=== PATIENT | female | born 2000 | race Caucasian/White ===

== ENCOUNTER → 2024-06-30 16:23 | Outpatient (REF) | payer BC, SELFPAY ==
[2024-07-05 08:54] LABS: HPV, High Risk Detected; HPV, High Risk Source Cervical
== END ==
LOC: CPAP 16:23
DX: Z12.4 Encounter for screening for malignant neoplasm of cervix (principal)
CPT/HCPCS: 87624

== ENCOUNTER → 2024-11-28 10:13 | Outpatient (REF) | payer BC, SELFPAY ==
[2024-11-28 11:06] LABS: % Basophils 0.8 % (0-2); % Eosinophils 3.2 % (0-6); % Immature Granulocytes 0.3 % (0-0.5); % Lymphocytes 32.1 % (20.5-51.1); % Neutrophils 56.6 % (42.2-75.2); Absolute Eosinophils 0.1 10^3/uL (0-0.7); Absolute Lymphocytes 1.2 10^3/uL (1.2-3.4); Absolute Monocytes 0.3 10^3/uL (0.1-0.6); Absolute Neutrophils 2.1 10^3/uL (1.4-6.5); Hematocrit 37.9 % (37.0-47.0); Hemoglobin 12.8 g/dL (12.0-16.0); Mean Corp Hgb Conc. 33.8 g/dL (33.0-37.0); Mean Platelet Volume 11.6 fL (7.4-10.4); Nucleated Red Blood Cells % 0 %; Platelet Count 211 10^3/uL (130-400); Red Blood Cell Count 4.26 10^6/uL (4.20-5.40); Red Cell Dist. Width 12.4 % (11.5-14.5); White Blood Cell Count 3.7 10^3/uL (4.8-10.8)
[2024-11-28 11:40] LABS: Erythrocyte Sed Rate 8 mm/hour (0-20)
[2024-11-28 12:28] LABS: ALT (SGPT) 12 U/L (0-35); AST (SGOT) 25 U/L (14-36); Alkaline Phosphatase 54 U/L (38-126); Blood Urea Nitrogen 13 mg/dl (7-17); Carbon Dioxide 26 mmol/L (22-30); Chloride 108 mmol/L (98-107); Glucose 84 mg/dl (70-99); HDL Cholesterol 71 mg/dl; LDL Cholesterol, Calculated 70 mg/dl; Potassium 4.5 mmol/L (3.5-5.1); Sodium 141 mmol/L (135-145); Total Bilirubin 0.6 mg/dl (0.2-1.3); Total Cholesterol 150 mg/dl (50-199); Total Protein 7.7 g/dl (6.3-8.2); Triglyceride 46 mg/dl (10-149); Very Low Density Lipoprotein 9 mg/dl (0-30); eGFR > 60.00
[2024-11-28 12:38] LABS: Glycohemoglobin (HgbA1c) 4.9 % (4.0-5.6)
[2024-11-28 13:57] LABS: C-Reactive Protein < 5.00 mg/L (0.0-10.00)
[2024-11-28 14:27] LABS: TSH Reflex To Free T4 1.77 uIU/ml (0.47-4.68)
[2024-11-28 17:50] LABS: Syphilis/T. pallidum Ab Reflex Negative (Negative)
[2024-11-28 21:02] LABS: HIV Combo Negative (Negative)
[2024-11-28 21:10] LABS: Hepatitis C Antibody Negative (Negative)
== END ==
LOC: REG 10:13
DX: Z11.3 Encounter for screening for infections with a predominantly sexual mode of transmission (principal); Z68.30 Body mass index [BMI] 30.0-30.9, adult; L81.6 Other disorders of diminished melanin formation
CPT/HCPCS: 36415; 80053; 80061; 83036; 84443; 85025; 85652; 86038; 86140; 86780; 86803; 87389; 87491; 87591

== ENCOUNTER 2025-02-04 00:23 | Observation (INO) | payer BC, SELFPAY ==
[2025-02-03 18:44] VITALS: BP 112/69
[2025-02-03 19:21] VITALS: BP 112/60
[2025-02-03 20:00] VITALS: BP 97/67
[2025-02-03 20:56] VITALS: BP 116/61
[2025-02-03 21:02] LABS: Hematocrit 35.1 % (37.0-47.0); Hemoglobin 12.3 g/dL (12.0-16.0); Mean Corp Hgb Conc. 35.0 g/dL (33.0-37.0); Mean Corpuscular Volume 85.6 fL (81.0-99.0); Nucleated Red Blood Cells % 0 %; Platelet Count 190 10^3/uL (130-400); Red Cell Dist. Width 12.3 % (11.5-14.5)
[2025-02-03 21:15] LABS: HCG, Serum Qualitative Screen Negative
[2025-02-03 21:22] LABS: ALT (SGPT) 11 U/L (0-35); AST (SGOT) 22 U/L (14-36); Albumin 4.8 g/dl (3.5-5.0); Alkaline Phosphatase 54 U/L (38-126); Blood Urea Nitrogen 10 mg/dl (7-17); Calcium 9.7 mg/dl (8.4-10.2); Carbon Dioxide 24 mmol/L (22-30); Chloride 102 mmol/L (98-107); Glucose 93 mg/dl (70-99); Potassium 4.2 mmol/L (3.5-5.1); Sodium 134 mmol/L (135-145); Total Protein 7.1 g/dl (6.3-8.2); eGFR > 60.00
--- NOTE | 2025-02-03 21:29 | ED.GENMED ---
History of Present Illness
General
Chief Complaint: Dizziness
Source: patient and family
Exam Limitations: none
Time Seen by Provider: 02/03/25 20:49
Nursing documentation reviewed up to this point in time: agreed with
History of Present Illness
History of Present Illness:
The patient is a 24-year-old female who reports that she was sitting and writing notes at 11 AM today and suddenly noted she difficulty writing words properly. Additionally, at the time, she noted she had difficulty verbalizing what she wanted to
say. Patient reports that the words would not come out properly and she experienced mumbling and also said words that did not make sense. Patient reports that symptoms lasted for hours and are now nearly gone at this time. Patient reports that
she also noticed generalized numbness around the center of her nose and mouth. Shortly after her symptoms started, she also developed a fairly sudden onset of a headache on the left side of her head. Patient reports that she still has the
headache. Patient reports that she generally does not get headaches and she has never had neurological symptoms like this before. Patient reports that her speech is back to its baseline but she still slightly feels as if it is harder to get words
out. She denies weakness. She denies vision changes. She denies nausea and vomiting. Patient reports that her sister has a history of Chiari malformation and underwent neurosurgery about a year and a half ago.
Past History
Past History
ED Past Medical History: None and Psychiatric
ED Past Surgical History: Tonsilectomy
Social History
Tobacco: Non-smoker
Alcohol: Occasional
Drug: None
Personal: Single
Living: with family
Employment: Employed
Family History
Family History: Other (Sister has Chiari malformation)
Review of Systems
Review of Systems
Allergies reviewed?: Yes
All Other Systems: ROS reviewed and negative except as documented in HPI and ROS
Constitutional: Reports no symptoms
EENT: Reports no symptoms
Respiratory: Reports no symptoms
Cardiac: Reports no symptoms
ABD/GI: Reports no symptoms
: Reports no symptoms
Musculoskeletal: Reports no symptoms
Skin: Reports no symptoms
Neurological: Reports dizzy, headache, numbness and other
Endocrine: Reports no symptoms
Hematologic/Lymphatic: Reports no symptoms
Psychiatric: Reports no symptoms
Phy Exam
Physical Exam
Physical Exam:
Physical Exam
General: no apparent distress, not acutely ill
Neck: supple. no meningeal signs. normal psoterior pharynx
Heart: s1/s2 regular rate and rhythm, no murmur. equal radial pulses.
Lungs: no acute respiratory distress. clear bilaterally
Abdomen: normal bowel sounds. not tender. no CVAT
Neuro: alert and orientedx3. no focal neurological deficits, visual jay intact. Equal sensation bilaterally in face, arms and legs. Speech sounds normal. Able to answer all questions appropriately. PERRL,
extraocular muscles intact
Skin: no rash
Psychiatric: well kept. interactive and cooperative
Extremities: no edema. no calf tenderness. negative homans. good distal pulses
Scores
NIH Stroke Score
Level of Consciousness: 0 - Alert
LOC Questions: 0-Answers both correctly
LOC Commands: 0-Performs both correctly
Best Horizontal Gaze: 0-Normal
Visual Jay: 0=Normal, no visual loss
Facial Palsy: 0=Normal, symmetrical
Motor - Right Arm: 0=No drift 10 seconds
Motor - Left Arm: 0=No drift 10 seconds
Motor - Right Le-No drift 5 seconds
Motor - Left Le-No drift 5 seconds
Limb Ataxia: 0-Absent
Sensation: 0-Normal
Best Language: 0-No aphasia
Dysarthria: 0-Normal
Extinction and Inattention: 0-No abnormality
NIH Total Score:: 0
Course
Orders/Labs/Results
Orders:
Orders
02/03/25 20:50
Test Result ONCE
02/03/25 20:51
Electrocardiogram (*1) Urgent
Reason for Study: TIA/Stroke
EKG- Treatment ONCE
02/03/25 20:54
Complete Blood Count/With Diff Urgent
Comprehensive Metabolic Panel Urgent
HCG, Serum Qualitative Screen Urgent
02/03/25 21:27
CT Head & Neck Angio W/wo IV Urgent
Comment:
Reason For Exam: headache, difficulty finding words
02/03/25 21:31
Morphine Sulfate 4 mg IV NOW STA
02/03/25 21:32
Ondansetron Injectable [Zofran] 4 mg IV NOW STA
02/03/25 22:59
Ketorolac [Toradol] 30 mg IV NOW STA
Abnormal Lab Results
02/03/25
20:54
RBC 4.10 L 10^6/uL
(4.20-5.40)
Hct 35.1 L %
(37.0-47.0)
MPV 11.5 H fL
(7.4-10.4)
Absolute Neuts (auto) 6.9 H 10^3/uL
(1.4-6.5)
Absolute Lymphs (auto) 1.0 L 10^3/uL
(1.2-3.4)
Neutrophils % 80.7 H %
(42.2-75.2)
Lymphocytes % 11.6 L %
(20.5-51.1)
Sodium 134 L mmol/L
(135-145)
02/03/25 20:54
02/03/25 20:54
Vital Signs
Initial and Last Documented VS:
Initial Vital Signs
Temp Pulse Resp BP Pulse Ox
98.2 F 61 16 112/69 98
02/03/25 18:44 02/03/25 18:44 02/03/25 18:44 02/03/25 18:44 02/03/25 18:44
Last Documented Vital Signs
Temp Pulse Resp BP Pulse Ox
98.2 F 69 19 116/61 100
02/03/25 18:44 02/03/25 21:01 02/03/25 20:30 02/03/25 20:56 02/03/25 22:08
MDM/Problems Addressed
Differential Diagnosis Includes:
Acute CVA, atypical migraine, subarachnoid hemorrhage
MDM/Problems Addressed:
Patient presents with acute headache and difficulty writing and speaking
*Radiology
Radiology exam reviewed: radiology read reviewed
*Pulse Oximetry
SaO2: 98
Oxygen Mode of Delivery: Room air
Patient hypoxic: no
*EKG
Interpreted by ED Provider?: Yes
Interpretation: normal
Comparison EKG: no comparison EKG present
Rate: normal
Rhythm: sinus
[place]: normal axis
Interval: normal interval
QRS Pattern: normal QRS
Ischemia: no ischemia
*Systems Architect Interpretation
Rate: normal
Interpretation: normal
Rhythm: sinus
*Critical Care Note
Total Time (30-74mins, 75-104mins- exclusive of procedures): 35 minutes
comment:
35 minutes of critical care between reviewing CT report, speaking to [facility] neurolog[facility], reviewing patient's blood work, EKG and counseling patient and family
ED Attending Note
-
Portions of this chart may have been created with voice recognition software.� Occasional wrong word or��sound alike� substitutions may have occurred due to the inherent limitations of voice recognition software.
Discharge Plan
Departure
Patient Disposition: Admit
Date of Disposition: 02/03/25
Time of Disposition: 23:20
Admit to: Med/Surg and Telemetry
Presentation/result/management discussed w/ accepting MD/DO: Hospitalist
Patient with high blood pressure during this ER visit?: No
Condition: Good
Covid-19: Not Applicable
Discharge Problem:
Stroke-like symptom
Prescriptions:
No Action
trazodone 100 MG tablet
100 mg PO HS
escitalopram oxalate 10 MG tablet
10 mg PO HS
Biotin
1 tab PO HS
amoxicillin-pot clavulanate 1 TABLET tablet
1 tab PO Q12H 7 Days Qty: 14 0RF
Referrals:
Celestino Escudero DO, Resident [Family Provider, General]
Interventions
Interventions:
*Risk Screen - Suicide Last Done: 02/03/25 18:44
*General Assessment Last Done: 02/03/25 18:44
*Neglect/Abuse Screening Last Done: 02/03/25 20:01
*ED- Fall Risk Assessment Last Done: 02/03/25 20:01
*ED COVID-19 Vaccine History Last Done: 02/03/25 20:01
ED- Neurological Assessment Last Done: 02/03/25 22:08
ED Swallowing Screen Last Done: 02/03/25 22:08
Discharge Date and Time
Print Language: UKRAINIAN
[2025-02-03] MEDS: ZOFRAN 4 MG IV (22:02)
[2025-02-03] MEDS: MORPHINE SULFATE 4 MG IV (22:02)
[2025-02-03 23:00] VITALS: BP 116/54
[2025-02-03] MEDS: TORADOL 30 MG IV (23:10)
--- NOTE | 2025-02-03 23:43 | HPS.HSE ---
Family Physician
-
Family Physician: Celestino Escudero DO, Resident
Chief Complaint
-
Dizziness
History of Present Illness
This is a 24-year-old female with no known signal past medical history presenting to the emergency department with acute episode of word finding difficulty and right difficulty starting at around 11 AM today.
Patient reports that around 11 AM while at work she suddenly had difficulty writing and then speaking. She felt that she might have been dreaming but the symptoms were recognized by coworkers. She had mumbled words and was not making sense. She
also reported left-sided headache without any radiation to the neck. She also reports some generalized numbness around the center of her nose and mouth. She slept for a few hours and then when she woke up the symptoms came back again.
She denied any recent cough cold flulike symptoms. She denies having any nausea or vomiting. She denies any vision changes. She denies any sinus congestion. She denies feeling lightheaded. He does report some dizziness. Neck pain or neck
stiffness. She denies any back pain. She denies any urinary symptoms. She denies having any fevers or chills. She has no recent travels or sick contacts. Patient does not take any medications. Denies tobacco smoking and use of oral
contraceptives. And no recent vaccinations. Denies any trauma due to the recurrence of her symptoms she decided to come to the emergency department.
Patient reports no significant family history of migraines, seizures, strokes. She does report a sister with a history of Chiari malformation status post surgery.
In the Emergency Department she was afebrile, blood pressure was 116/61 with a pulse rate of 69 she was satting 100% on room air.
CBC was unremarkable, electrolytes BUN/creatinine were all normal. ECG showed a normal sinus rhythm
CT of the head without contrast without acute intracranial abnormality.
No findings to suggest internal carotid artery dissection bilaterally and no demonstrable atherosclerotic narrowing of the internal carotid arteries.
Markedly dominant left vertebral artery.
No findings to suggest proximal intracranial arterial occlusion bilaterally. Please see above comments.
Medical History
Past Medical History
Past Medical History: Reports Psychiatric (depression/anxiety)
Past Surgical History: Reports Tonsilectomy
Social History
Tobacco: Vaping
Alcohol: None
Drug: None
Personal: Single
Employment: Employed
Family History
Family History: Not pertinent
Allergies / Home Medications
Allergies reflects when Allergies were last updated in [employer].
Home Medications with original date entered in [employer]
Allergy/Medication List:
Allergies
Allergy/AdvReac Type Severity Reaction Status Date / Time
No Known Allergies Allergy Verified 02/03/25 18:48
Home Medications
Biotin 1 tab PO HS 02/15/20
amoxicillin 875 mg-potassium clavulanate 125 mg tablet 1 tab PO Q12H 7 days #14 tabs 02/15/20
escitalopram oxalate 10 mg tablet 10 mg PO HS 02/15/20
trazodone 100 mg tablet 100 mg PO HS 02/15/20
Review of Systems
-
Constitutional: Reports No Symptoms
EENT: Reports No Symptoms
Respiratory: Reports No Symptoms
Cardiac: Reports No Symptoms
Abdomen/GI: Reports No Symptoms
: Reports No Symptoms
Musculoskeletal: Reports No Symptoms
Skin: Reports No Symptoms
Neurological: Reports See HPI, Dizzy and Numbness
Endocrine: Reports No Symptoms
Hematologic/Lymphatic: Reports No Symptoms
Psych: Reports No Symptoms
Physical Exam
Vital Signs
Vital Signs
Temp Pulse Resp BP Pulse Ox
98.2 F 69 19 116/61 100
02/03/25 18:44 02/03/25 21:01 02/03/25 20:30 02/03/25 20:56 02/03/25 22:08
Physical Exam
General: Well Developed, Well Nourished and No Apparent Distress
HEENT: NormoCephalic, Moist mucous membranes and Atraumatic
Respiratory: Clear
Cardiac: S1/S2 and Regular Rhythm; No Murmur or Rub
GI: Soft, Non Tender, Non Distended and Normal Bowel Sounds; No Organomegaly
Rectal: Deferred by Provider
Musculoskeletal: No Clubbing, No Cyanosis and No Edema
Skin: No Rash
Neuro: Nonfocal/grossly intact
Psych: Calm
Laboratory Results
-
02/03/25 20:54
02/03/25 20:54
Laboratory Results
Total Bilirubin 0.8 mg/dl (0.2-1.3) 02/03/25 20:54
AST 22 U/L (14-36) 02/03/25 20:54
ALT 11 U/L (0-35) 02/03/25 20:54
Alkaline Phosphatase 54 U/L (38-126) 02/03/25 20:54
Data Reviewed
-
CT Scan: Report Reviewed by me
Medical Tests (Nuc Med, Echo, EKG etc): Image Personally Visualized and interpreted
Lab Data: Labs Reviewed by me
Old Records: Reviewed
Impression/Plan
-
IMPRESSION:
24 year-old with no known segment past medical history presenting to the emergency department with an acute episode of word finding difficulty, writing difficulties and mild perioral numbness with associated left-sided headache. No prior history of
migraines or seizures. CT head and CT angio unremarkable. Labs are otherwise unremarkable. Symptoms are now mostly resolved although patient still feels off from her baseline. Due to the acuity of the onset, lack of history of headaches and
associated neurological changes there remains some concern for atypical migraine versus dural sinus thrombosis.
PLAN:
Headache
-Admit to MedSurg
-Neurochecks every 8 hours
-Discussed with [facility] neuro resident, CT venogram recommended and admission.
-Pain control and antiemetics
-Neurology consult
DVT �SCDs
CODE STATUS�full
[2025-02-04 00:54] VITALS: BMI 30.3
--- NOTE | 2025-02-04 02:39 | DOWNTIME ---
There was a [employer] Downtime on 02/04/2025 from 0100 to 02/04/2025 at 0235. Downtime documentation of patient's care, including medication administrations, has been reconciled in the electronic record per guidelines. Refer to the
patient's paper chart under the miscellaneous tab to see printed paper medication records and downtime forms.
--- NOTE | 2025-02-04 08:13 | CON.NEURO4 ---
Addendum entered and electronically signed by Angelo Peters MD 02/04/25 11:24:
Studies reviewed.
I have personally examined the patient. I reviewed and agree with the SENIOR ELECTRICAL DESIGN ENGINEER's Note.
My addenda:
Awake, alert, interactive. No acute distress.
Speech intact.
Follows 2-step requests w/o difficulty. No tremor.
Extra-ocular movements grossly intact.
Facial movements full and symmetric. Hearing intact to normal conversational volume.
Normal UE movements bilaterally.
Neck: full ROM.
Chest: no dyspnea
Heart: no JVD
Ext: (-) Clubbing, (-) Cyanosis, (-) Edema
IMPRESSIONS/RECOMMENDATIONS:
Abrupt onset of skin sensation change followed by headache. Most likely due to migraine with aura. Differential diagnosis includes intracranial structural abnormality producing symptoms although this is less likely based on plain head CT appearing
to be unremarkable.
Check MRI brain with and without contrast
Check blood work for metabolic abnormalities producing symptoms
No indication for antiplatelet agents at this time
Would provide rizatriptan in hopes of remediating the patient's headache
Not clear patient will require routine antiheadache medication at this time
D/W patient
All questions answered.
Will continue to follow pending results.
Original Note:
Documented by User: Jayshree Watson NP 02/04/25 10:20
Consultation - Neurology 4
-
CONSULTING PHYSICIAN: Angelo Peters MD
REFERRING PHYSICIAN: Hospitalists/Dr. Ortiz
DICTATED BY: AIXA Cohen
DATE/TIME OF REQUEST: 02/04/25
DATE/TIME OF CONSULTATION: 02/04/25
Reason for Consultation: Aphasia, headache, sensation changes
History of Present Illness:
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
writing, her written words started looking nonsensical. She reports that her mom also said her speech was somewhat nonsensical and slurred. She then developed a tingling sensation on her nose, felt slightly dizzy, and became nauseous. About 30
minutes later she developed a headache in the left temporal-parietal region. She rates her headache yesterday a 7-8/10. Shes notes having significant photo/phonophobia. She took 3 ibuprofen and laid down for a nap. Upon waking her symptoms were
persistent so she took an Excedrin migraine. After still having no relief of her headache, she presented to the ER for evaluation. CT head and CTA head/neck were obtained on arrival in the ER and are negative for any acute abnormalities. NIHSS was
0 and she was not a candidate for TNK/IAT. She reports having some relief of her headache down to a 3/10 by 2300 after receiving medication in the ER. Today (02/04/25), she notes that her headache is still a 3/10 on the left side of her head. She
denies any dizziness, vision changes, speech/swallowing difficulty, numbness, and weakness. She denies any personal history of migraine headaches or events like this in the past. About once every couple of months she has a mild 2-3/10 dull headache
not associated with photo/phonophobia or nausea/vomiting. She typically takes ibuprofen and her headache resolves in 30 minutes. She is not taking hormonal control. Her sister gets migraines and had surgical intervention on a Chiari 1
malformation.
Past Medical History: Anxiety, depression.
Surgical History: Tonsillectomy.
Family History: Sister- migraines, Chiari malformation.
Social History: Occasionally vapes. Denies alcohol and illicit drug use. Works at a [employer] alf.
Allergies: No known allergies.
Home Medications: None.
Review of Symptoms:
Patient denies any fever, chest pain, shortness of breath, GI or symptoms.
�Per the HPI.�All systems are reviewed negative except above.
Physical Exam:
The patient is afebrile, abdomen is nondistended, breathing is unlabored, skin is warm and dry, no edema.
NIH Stroke Scale:
I performed the NIH stroke scale on the patient on 02/04/25 at 0900. The patient scored 0 points on the NIH stroke scale assessment, which were assigned as follows: See below.
Neurologic Examination:
The patient is awake, alert and oriented x 3. She is able to follow commands and answer questions appropriately. There is no aphasia or dysarthria. On cranial nerve assessment, pupils are 3 mm bilateral, round and reactive to light and
accommodation. Visual delvalle are full. Extraocular movements are intact. Facial sensations are intact and bilaterally symmetrical, there is no facial asymmetry. Hearing is intact bilaterally to normal conversation volume. Tongue palate and uvula are
midline. Sternocleidomastoid strengths are full bilaterally. Motor strengths are 5/5 bilateral upper and lower extremities on medical research [place] scale. There is no drift or involuntary movement noted. Deep tendon reflexes are 2+ bilateral
upper and lower extremities and Babinski is absent bilaterally. There was no extinction noted on double simultaneous stimulation. Coordination is intact by finger to nose bilaterally.
Lab Results: See below.
Neuro Imaging:
1. CT Head 02/04/25: No evidence of dural venous sinus thrombus.
2. CTA head/neck 02/04/25: CT of the head without contrast without acute intracranial abnormality. No findings to suggest internal carotid artery dissection bilaterally and no demonstrable atherosclerotic narrowing of the internal carotid arteries.
Markedly dominant left vertebral artery. No findings to suggest proximal intracranial arterial occlusion bilaterally.
Differentials for the patient's presentation include:
1. Migraine with aura likely producing symptomatology.
2. Very low concern for structural brain abnormality producing symptoms but cannot entirely exclude this.
3. CTA head/neck negative for any vascular abnormality producing symptoms.
Patient has the following risk factors for their symptoms: Sister- migraines.
IV Tenecteplase/IAT candidacy: Not a candidate due to NIHSS 0, low concern for stroke.
Recommendations:
-Provide rizatriptan 10mg x1 now, may repeat dose in 2 hours if not complete relief of symptoms.
-MRI Brain w/ and w/o contrast pending.
-Checking blood work for metabolic abnormalities.
-No role for headache prevention medication at this time as headaches are rare.
-Avoid estrogen-containing control as this combined with migraine aura increases stroke risk.
-Vaping can also slightly increase risk of stroke in patient's with migraine aura.
-Provide patient with a stroke education packet.
-Follow-up with Neurology as an outpatient if headaches become more frequent.
Discussed patient care with: Dr. Peters, the patient
Vital Signs and Labs
-
Vital Signs and Labs:
Vital Signs
Temp Pulse Resp BP Pulse Ox
98.2 F 48 16 116/54 97
02/03/25 18:44 02/04/25 00:45 02/04/25 00:45 02/03/25 23:00 02/04/25 00:45
Lab Results
02/03/25 20:54
02/03/25 20:54
Sodium 134 mmol/L (135-145) L 02/03/25 20:54
Potassium 4.2 mmol/L (3.5-5.1) 02/03/25 20:54
BUN 10 mg/dl (7-17) 02/03/25 20:54
Glucose 93 mg/dl (70-99) 02/03/25 20:54
Calcium 9.7 mg/dl (8.4-10.2) 02/03/25 20:54
Medications
-
Active Medications
Generic Name Dose Route Start Last Admin
Trade Name Freq PRN Reason Stop Dose Admin
Acetaminophen 650 mg 02/04/25 00:26
Acetaminophen 325 Mg Tablet PO 03/04/25 00:25
Q4HPRN PRN
mild pain/THAKUR/temp> 100.4F
Bisacodyl 10 mg 02/04/25 00:26
Bisacodyl 10 Mg Rectal Suppository RECTAL 03/04/25 00:25
Q38MPEZ PRN
constipation
Ketorolac Tromethamine 15 mg 02/04/25 00:26
Ketorolac 15 Mg/Ml Injection IV 02/09/25 00:25
Q6HPRN PRN
moderate pain
Ondansetron HCl 4 mg 02/04/25 00:26
Ondansetron 4 Mg/2 Ml Vial IV 03/04/25 00:25
Q6HPRN PRN
nausea and vomiting
Polyethylene Glycol 17 grams 02/04/25 00:26
Polyethylene Glycol Powder 17 Grams Packet PO 03/04/25 00:25
DAILYPRN PRN
constipation
Senna/Docusate Sodium 1 tablet 02/04/25 00:26
Docusate W/Senna (Martina-Colace) Tablet PO 03/04/25 00:25
BIDPRN PRN
constipation
Sodium Chloride 0 flush 02/04/25 01:00
Sodium Chloride 0.9% (Flush) Syringe IV 03/04/25 00:59
PER PROTOCOL CHARLES
Home Medications
�Medication �Instructions �Recorded
No Meds [No Current Medications] 02/04/25
NIH Stroke Score
Subsequent NIH Scale
Date of Subsequent NIH Scale: 02/04/25
Time of Subsequent NIH Scale: 09:00
NIH Stroke Score
Level of Consciousness: 0 - Alert
LOC Questions: 0-Answers both correctly
LOC Commands: 0-Performs both correctly
Best Horizontal Gaze: 0-Normal
Visual Delvalle: 0=Normal, no visual loss
Facial Palsy: 0=Normal, symmetrical
Motor - Right Arm: 0=No drift 10 seconds
Motor - Left Arm: 0=No drift 10 seconds
Motor - Right Le-No drift 5 seconds
Motor - Left Le-No drift 5 seconds
Limb Ataxia: 0-Absent
Sensation: 0-Normal
Best Language: 0-No aphasia
Dysarthria: 0-Normal
Extinction and Inattention: 0-No abnormality
NIH Total Score:: 0

Documented by User: Angelo Peters MD 02/04/25 11:17
NIH Stroke Score
NIH Stroke Score
NIH Total Score:: 0
[2025-02-04] MEDS: MAXALT MLT (ORALLY DISINTEGRATING) 10 MG PO (09:36)
[2025-02-04 10:23] LABS: Vitamin D, 25-OH*** 39.4 ng/mL (30-80)
[2025-02-04 10:41] LABS: Ferritin 65.1 ng/ml (6.24-137)
--- NOTE | 2025-02-04 10:49 | CM ---
Met with patient in the ED @ bedside
Outpatient Observation Status Notice explained; form signed @ 1038
[facility] : [facility] [id number] [facility]
Lives with mother; split level home; her bedroom and full bath on lower level; 2 steps to enter; 6 steps between levels; railings present on stairs
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
NO SNF or Home Health utilization history
Mother will transport
Plan: Discharge to home when medically cleared; no needs anticipated
[2025-02-04 11:13] LABS: Folate 10.1 ng/ml (2.76-20); Vitamin B12 663 pg/ml (239-931)
--- NOTE | 2025-02-04 14:34 | W.PN.HOSP.TC ---
Addendum entered and electronically signed by Paul Polanco DO 02/04/25 14:53:
Radiologist informed me that brain MRI shows no acute findings.
Okay to discharge.
Original Note:
Today's Communication/Plan
-
Follow-up brain MRI
Likely discharge
Assessment / Plan
Assessment / Plan
Gen-AAOx3, NAD
HEENT-NC, AT, anicteric, clear oral mm
Neck-supple
CV-reg, no M, +S1/S2
Lungs-clear B/L
Abd-soft, NT, ND
Ext-no edema
Musculoskeletal-no cyanosis, clubbing
Skin-warm and dry
Neuro-grossly non-focal
Psych-calm, cooperative
Migraine with aura -new diagnosis for her. Denies history of migraines. Symptoms improved.
Discussed with neurology. Await brain MRI.
If brain MRI negative then can discharge home today. Updated mother at the bedside.
Neurology service recommends rizatriptan as needed headache.
Outpatient follow-up.
Mild hyponatremia -present on admission.
Obesity due to excess calories
Full code
Anticipated Discharge: Today
Subjective/Interval History
-
Date of Service: February 04, 2025
Patient seen and examined, no complaints currently. Feels better. Headache resolved.
Objective Data
-
Vital Signs:
Vital Signs
Temp Pulse Resp BP Pulse Ox
98.2 F 48 16 116/54 97
02/03/25 18:44 02/04/25 00:45 02/04/25 00:45 02/03/25 23:00 02/04/25 00:45
Review of Systems
-
History Source: Patient
All other systems: Reviewed and negative
--- NOTE | 2025-02-04 14:40 | W.DS.TRANS ---
DC Summary - Resident Care Aid
-
Discharge Instructions:
Discharge Diagnosis/Procedures Migraine with aura
Diet Regular
Activity As tolerated
Driving Restrictions As prior to admission
Bathing Restrictions None
Instructions:
Stand-Alone Forms:
Changes to Home Medications: No
Discharge Medications:
DC Medications w/original date entered in [employer]
rizatriptan 10 mg disintegrating tablet 10 mg PO ONCE PRN migraine headache #9 tabs 02/04/25
Home Medication Changes
Pending Results: No
[2025-02-04 15:06] VITALS: BP 111/54
[2025-02-04 15:10] VITALS: BMI 31.5
--- NOTE | 2025-02-04 15:13 | PTCARENOTE ---
Received pt from ED, pt ambulatory to bed with no assistance. Pt reports all symptoms resolved besides a minor headache. VSS. Pt had discharge order in on arrival to floor. Confirmed with Dr. Polanco, pt to be discharged. Discharge instructions
given, pt states understanding. Awaiting ride home around 16:00.
== END 2025-02-04 16:23 | disposition home or self-care (01) ==
LOC: 4 EAST ACU 00:23
PROVIDERS: ADMITTING PHYSICIAN Internal Medicine; ATTENDING PHYSICIAN Hospitalist; CONSULT PHYSICIAN Psychiatry & Neurology Neurology; EMERGENCY PHYSICIAN Emergency Medicine
DX: G43.109 Migraine with aura, not intractable, without status migrainosus (principal); E87.1 Hypo-osmolality and hyponatremia; E66.09 Other obesity due to excess calories; Z68.31 Body mass index [BMI] 31.0-31.9, adult; F17.290 Nicotine dependence, other tobacco product, uncomplicated; F32.A Depression, unspecified; F41.9 Anxiety disorder, unspecified
CPT/HCPCS: 70460; 70496; 70498; 70553; 80053; 80306; 80307; 82306; 82607; 82728; 82746; 84703; 85025; 93005; 96374; 96375; 99291; A9575; G0378; Q9967